=== PATIENT | male | born 1925 | race Caucasian/White ===

== ENCOUNTER 2016-10-21 14:42 | Emergency (ER) | payer MEDICARE ==
[2016-10-21 16:03] LABS: Hematocrit 36 % (42-52); Hemoglobin 11.8 g/dl (14.0-18.0); Mean Corpuscular HGB Conc 33 g/dl (31-36); Mean Corpuscular Hemoglobin 31 pg (27-31); Mean Corpuscular Volume 93 fL (80-94); Mean Platelet Volume 9 um3 (7.4-10.4); Red Cell Distribution Width 16 % (10.5-15); White Blood Count 11.5 10^3/ul (3.5-10.8)
[2016-10-21 16:34] LABS: Albumin 3.7 g/dL (3.2-5.2); BUN/Creatinine Ratio 23.9 (8-20); C Reactive Protein 58.62 mg/L (< 5.00); Calcium 9.4 mg/dL (8.6-10.3); EGFR African American 62.4 (>60); EGFR Non-African American 48.5 (>60); Globulin 3.4 g/dL (2-4); Potassium 5.1 mmol/L (3.5-5.0); Total Bilirubin 0.3 mg/dL (0.2-1.0); Total Protein 7.1 g/dL (6.4-8.9)
[2016-10-21] MEDS ORDERED: Iodixanol* (CONTRAST) 320 MG/ML 100 ML SDV IV ONE (16:49)
--- NOTE | 2016-10-21 18:08 | RAD ---
HISTORY: Left flank pain COMPARISONS: March 18, 2016 TECHNIQUE: Multiple contiguous axial CT scans were obtained of the chest, abdomen, and pelvis after the administration of intravenous contrast. Coronal and sagittal multiplanar reformations are submitted for review.. FINDINGS: CHEST NECK AND THYROID: The lower neck and thyroid are unremarkable. CHEST WALL: There is no lower cervical, axillary, or supraclavicular lymphadenopathy by size criteria. HEART AND PERICARDIUM: The heart is unremarkable. AORTA AND PULMONARY VASCULATURE: There is calcification of the thoracic aorta. The pulmonary vasculature is unremarkable. MEDIASTINUM: There is no mediastinal lymphadenopathy by size criteria. XU: There is no hilar lymphadenopathy by size criteria. AIRWAY AND ESOPHAGUS: The airway is unremarkable, without endobronchial filling defect. The esophagus is grossly normal. LUNG PARENCHYMA: There is subsegmental compressive atelectasis of the right lower lobe PLEURA: There is a large right pleural effusion BONES AND SOFT TISSUES: Degenerative changes are noted of the spine ABDOMEN/PELVIS: LIVER: The liver is normal in shape, size, contour, and attenuation. BILE DUCTS: There is no intrahepatic or extrahepatic biliary dilatation. GALLBLADDER: The gallbladder is normal, without pericholecystic inflammatory change. PANCREAS: The pancreas is normal, without mass or ductal dilatation. SPLEEN: Normal in size and appearance. UPPER GI TRACT: Evaluation of the gastrointestinal tract is limited by incomplete gastric distention. The upper GI tract is unremarkable. SMALL BOWEL \T\ MESENTERY: The small bowel is normal in contour, course, and caliber. There is no obstruction or dilatation. COLON: The colon is normal in contour, course, caliber. There is no pericolonic inflammatory change. ADRENALS: Normal bilaterally. KIDNEYS: Multiple renal cysts are noted. There is no appreciable hydronephrosis or lithiasis BLADDER: The bladder is smooth in contour. PELVIC ORGANS: The prostate gland is normal. The seminal vesicles are symmetric. AORTA: Atherosclerosis IVC: Unremarkable LYMPH NODES: There is no lymphadenopathy by size criteria. ABDOMINAL WALL: There is no evidence for abdominal wall hernia. BONES: Degenerative changes are noted most pronounced at L5-S1. 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 LARGE RIGHT PLEURAL EFFUSION WITH COMPRESSIVE ATELECTASIS OF THE RIGHT LOWER LOBE. 2. ATHEROSCLEROSIS. 3. STABLE RENAL CYSTS
[2016-10-21] MEDS ORDERED: Cephalexin CAP* 500 MG PO ONE ×2 (18:46)
[2016-10-21 18:49] VITALS: BP 152/70
--- NOTE | 2016-10-21 22:02 | ED ---
Jeremy Donohue Alfonso, scribed for Suraj Hall MD on 10/21/16 at 1515 . Abdominal Pain/Male - HPI Summary HPI Summary: This patient is a 89 year old male BIBA to [facility] [place] c/o sharp intermittent left flank pain since 3 days ago. The pain is localized over a healed wound. He rated the pain 10/10 during triage, but he currently denies any pain. Symptoms aggravated by palpation and alleviated by nothing. - History of Current Complaint Chief Complaint: EDFlankPain Stated Complaint: FLANK PAIN Onset/Duration: Sudden Onset, Lasting Days - 4 days Timing: Intermittent Severity Initially: Severe Severity Currently: Severe Pain Intensity: 10 Pain Scale Used: 0-10 Numeric Location: Flank - Left flank Character: Sharp Aggravating Factor(s): Other: - Palpation Alleviating Factor(s): Nothing - Allergies/Home Medications Allergies/Adverse Reactions: Allergies Allergy/AdvReac Type Severity Reaction Status Date / Time No Known Allergies Allergy Verified 12/19/14 13:09 Home Medications: Home Medications Ergocalciferol CAP* [Drisdol CAP*] 50,000 unit PO .TWICE A MONTH 10/21/16 [ History Confirmed 10/21/16] Lisinopril TAB* [Prinivil TAB*] 20 mg PO DAILY 10/21/16 [History Confirmed 10/21] Magnesium Hydroxide LIQ* [Milk of Magnesia LIQ*] 30 ml PO DAILY PRN 10/21/16 [ History Confirmed 10/21/16] Omeprazole CAP* [Prilosec CAP* 20 MG] 20 mg PO DAILY 10/21/16 [History Confirmed 10/21/16] Phenytoin 125mg/5ml 14 ml PO BEDTIME 10/21/16 [History Confirmed 10/21/16] Rivaroxaban TAB(*) [Xarelto 15 mg(*)] 15 mg PO DAILY 10/21/16 [History Confirmed 10/21/16] Verapamil TAB* [Calan TAB*] 360 mg PO DAILY 10/21/16 [History Confirmed 10/21/16 ] PMH/Surg Hx/FS Hx/Imm Hx Endocrine/Hematology History: Reports: Hx Anticoagulant Therapy - XARELTO Denies: Hx Diabetes Cardiovascular History: Reports: Hx Hypercholesterolemia, Hx Hypertension Denies: Hx Congestive Heart Failure - (Not yet diagnosed) History: Denies: Hx Dialysis, Hx Renal Disease Musculoskeletal History: Reports: Hx Arthritis - POLYMYALIGA RHEUMATICA, Hx Fibromyalgia Sensory History: Reports: Hx Contacts or Glasses, Hx Hearing Problem - Slight [place] Opthamlomology History: Reports: Hx Contacts or Glasses Neurological History: Reports: Hx Dementia, Hx Seizures, Other Neuro Impairments /Disorders - INTERCRANIAL HEMORRHAGE - Surgical History Surgery Procedure, Year, and Place: CRANIOTOMY. BL KNEE SURGERY Infectious Disease History: No Infectious Disease History: Denies: Traveled Outside the [place] in Last 30 Days - Family History Known Family History: Positive: Cardiac Disease - Social History Alcohol Use: Unable to obtain Alcohol Amount: 1 drink monday night. Hx Substance Use: No Substance Use Type: Reports: None Hx Tobacco Use: No Smoking Status (MU): Never Smoked Tobacco Review of Systems Positive: Abdominal Pain - sharp left flank pain Positive: Other - Healed wound at left flank All Other Systems Reviewed And Are Negative: Yes Physical Exam Triage Information Reviewed: Yes Vital Signs On Initial Exam: Initial Vitals Temp Pulse Resp BP Pulse Ox 98 F 95 20 138/74 95 10/21/16 14:43 10/21/16 14:43 10/21/16 14:43 10/21/16 14:43 10/21/16 14:43 Vital Signs Reviewed: Yes Appearance: Positive: Well-Appearing, No Pain Distress Skin: Positive: Warm, Skin Color Reflects Adequate Perfusion, Dry, Other - Healed wound at left flank Head/Face: Positive: Normal Head/Face Inspection Eyes: Positive: Normal ENT: Positive: Normal ENT inspection Neck: Positive: Supple, Nontender Respiratory/Lung Sounds: Positive: Clear to Auscultation, Breath Sounds Present Cardiovascular: Positive: RRR Abdomen Description: Positive: CVA Tenderness (L) Bowel Sounds: Positive: Present Musculoskeletal: Positive: Normal Neurological: Positive: Normal, Sensory/Motor Intact, Alert, Oriented to Person Place, Time, CN Intact II-III Psychiatric: Positive: Affect/Mood Appropriate - [place] Coma Scale Coma Scale Total: 15 Diagnostics - Vital Signs Vital Signs Temp Pulse Resp BP Pulse Ox 10/21/16 14:50 98 F 80 18 138/74 97 10/21/16 14:43 98 F 95 20 138/74 95 - Laboratory Lab Results: Lab Results 10/21/16 10/21/16 Range/Units 15:54 15:54 WBC 11.5 H (3.5-10.8) 10^3/ul RBC 3.80 L (4.0-5.4) 10^6/ul Hgb 11.8 L (14.0-18.0) g/dl Hct 36 L (42-52) % MCV 93 (80-94) fL MCH 31 (27-31) pg MCHC 33 (31-36) g/dl RDW 16 H (10.5-15) % Plt Count 250 (150-450) 10^3/ul MPV 9 (7.4-10.4) um3 Neut % (Auto) 78.0 (38-83) % Lymph % (Auto) 9.5 L (25-47) % [place] % (Auto) 10.9 H (1-9) % Eos % (Auto) 0.9 (0-6) % Baso % (Auto) 0.7 (0-2) % Absolute Neuts (auto) 9.0 H (1.5-7.7) 10^3/ul Absolute Lymphs (auto) 1.1 (1.0-4.8) 10^3/ul Absolute Monos (auto) 1.2 H (0-0.8) 10^3/ul Absolute Eos (auto) 0.1 (0-0.6) 10^3/ul Absolute Basos (auto) 0.1 (0-0.2) 10^3/ul Absolute Nucleated RBC 0 10^3/ul Nucleated RBC % 0 Sodium 136 (133-145) mmol/L Potassium 5.1 H (3.5-5.0) mmol/L Chloride 102 (101-111) mmol/L Carbon Dioxide 27 (22-32) mmol/L Anion Gap 7 (2-11) mmol/L BUN 33 H (6-24) mg/dL Creatinine 1.38 H (0.67-1.17) mg/dL Est GFR ( Amer) 62.4 (>60) Est GFR (Non-Af Amer) 48.5 (>60) BUN/Creatinine Ratio 23.9 H (8-20) Glucose 99 (70-100) mg/dL Calcium 9.4 (8.6-10.3) mg/dL Total Bilirubin 0.30 (0.2-1.0) mg/dL AST 35 (13-39) U/L ALT 31 (7-52) U/L Alkaline Phosphatase 64 (34-104) U/L C-Reactive Protein 58.62 H (< 5.00) mg/L Total Protein 7.1 (6.4-8.9) g/dL Albumin 3.7 (3.2-5.2) g/dL Globulin 3.4 (2-4) g/dL Albumin/Globulin Ratio 1.1 (1-3) Result Diagrams: 10/21/16 15:54 10/21/16 15:54 Lab Statement: Any lab studies that have been ordered have been reviewed, and results considered in the medical decision making process. - Radiology CT chest/abdomen/pelvis Xray Interpretation: Positive (See Comments) - 1. LARGE RIGHT PLEURAL EFFUSION WITH COMPRESSIVE ATELECTASIS OF THE RIGHT LOWER LOBE. 2. ATHEROSCLEROSIS. 3. STABLE RENAL CYSTS Radiology Interpretation Completed By: Radiologist Re-Evaluation - Re-Evaluation First Eval Re-Evaluation Time: 18:40 Comment: Discussed discharge and results with patient. Abdominal Pain Fem Course/Dx - Course Course Of Treatment: Mr. Durand arrived with a C/O pain in his left side where he previously had, I believe, a chest tube. It is tender and mildly erythematous. His WBC's are slightly elevated and he has no fever. A CT shows a mild cellulitis but no abscess. - Diagnoses Provider Diagnoses: Cellulitis Discharge - Discharge Plan Condition: Stable Disposition: HOME Prescriptions: Cephalexin [Keflex 750 MG] 750 mg PO TID #30 cap Patient Education Materials: Cellulitis (ED) Referrals: Mario Kovacs MD [Primary Care Provider] - 1 Week The documentation as recorded by the Jeremy edwards Alfonso accurately reflects the service I personally performed and the decisions made by me, Suraj Hall MD.
== END 2016-10-21 20:08 | disposition home or self-care (01) ==
LOC: ED 14:42
DX: L03.90 Cellulitis, unspecified (principal); R10.84 Generalized abdominal pain
CPT/HCPCS: 36415; 71260; 74177; 80053; 85025; 86140; 99283; A9270-GY; Q9967